=== PATIENT | female | born 1935 ===

== ENCOUNTER 2017-05-20 11:05 | Outpatient (CLI) | payer MEDICARE ==
[2017-05-20 11:59] LABS: Free T4 (Free Thyroxine) 1.03 ng/dL (0.76-1.46)
== END 2017-05-20 11:06 | disposition home or self-care (01) ==
LOC: LAB 11:05
PROVIDERS: ATTEND Specialist
DX: R25.3 Fasciculation (principal)
CPT/HCPCS: 36415; 84439; 84443